=== PATIENT | male | born 1995 | race American Indian/Alaskan Native ===

== ENCOUNTER 2021-08-11 13:40 | Emergency (ER) | payer SELFPAY ==
[~2021-08-11] VITALS: Ht 182.9 cm; Wt 98.4 kg
--- OUTSIDE RECORDS SUMMARY | 2021-08-11 13:50 | XMS ---
PreManage Notification: PETER RODRIGUEZ Security Associate Financial Advisor Events No recent Security Events currently on file CRITERIA MET - [facility] - 2 Visits in 30 Days CARE PROVIDERS SAMI OSEGUERA Family Medicine Current PHONE: Unknown Nurse CANDELARIA Practitioner: Family Fatmata CARTWRIGHT PHONE: Unknown Kellie has no Care Guidelines for this patient. Kavin VISIT COUNT (12 MO.) [address] [place] [address] [address] [place] [address] TOTAL 5 NOTE: Visits indicate total known visits. ED/UCC VISIT TRACKING (12 MO.) [facility]2021 13[facility] COMPLAINT: - CHEST PAIN, NO FEELING IN HANDS, MOUTH SORENESS 08/08/2021 04:[facility] DIAGNOSES: - Other chest pain - LEFT SIDE CHEST SWELLING\E\T\E\PAIN / LEFT ARM NUMB/ HAND SWELLING 10/07/2020 17:08 [facility]: Emergency DIAGNOSES: - Noninfective gastroenteritis and colitis, unspecified - Gastrointestinal hemorrhage, unspecified - Near Syncope - Blood In Stool 10/07/2020 13:47 [facility] [place] [facility]: Emergency DIAGNOSES: - black stools - Procedure and treatment not carried out due to patient leaving prior to being seen by health care provider - GI Bleeding 10/05/2020 15:21 [facility] TYPE: Emergency DIAGNOSES: - GI Bleeding - vomiting/pooping blood stomach pain - Unspecified abdominal pain - Abdominal Pain - Noninfective gastroenteritis and colitis, unspecified INPATIENT VISIT TRACKING (12 MO.) 10/08/2020 00:28 Elli Arevalo Dinah GONZALES TYPE: Oncology DIAGNOSES: - Lower GI bleed [email or web address]
[2021-08-11] MEDS ORDERED: PROTONIX20 MG PO (14:00)
--- NOTE | 2021-08-11 18:03 | EKG ---
[facility] [address] [place], [place] [address] Signed Sinus tachycardia Otherwise normal ECG No previous ECGs available Confirmed by KWASI CONROY MD ([id number]) on 08/11/2021 6:03:18 PM Electronically Signed By: KWASI CONROY MD 08/11/21 180 PATIENT NAME: PETER RODRIGUEZ Electrocardiogram DATE OF : [birth year] PHYSICIAN: KWASI CONROY MD REPORT #: [id number] REPORT IS CONFIDENTIAL AND NOT TO BE RELEASED WITHOUT AUTHORIZATION
== END 2021-08-11 15:40 | disposition home or self-care (01) ==
LOC: ED 13:40
DX: F19.10 Other psychoactive substance abuse, uncomplicated (principal); Z79.899 Other long term (current) drug therapy
CPT/HCPCS: 36415; 71045; 80053; 84484; 85025; 93005; 93010; 99285-25; J7030

== ENCOUNTER 2023-05-03 11:19 | Emergency (ER) | payer OTHER ==
[~2023-05-03] VITALS: Ht 182.9 cm; Wt 95.8 kg
[~2023-05-03 11:19] MED LIST: PROTONIX20 MG PO
[2023-05-03 13:05] VITALS: BP 92/69
== END 2023-05-03 13:05 | disposition home or self-care (01) ==
LOC: ED 11:19
DX: R51.9 Headache, unspecified (principal)
CPT/HCPCS: 70450; 99284-25